=== PATIENT | female | born 1965 | race American Indian/Alaskan Native ===

== ENCOUNTER 2019-06-03 18:46 | Emergency (ER) | payer MEDICAID ==
[2019-06-03 19:35] VITALS: BP 146/86
--- NOTE | 2019-06-03 19:37 | Event Note ---
ED Screening Note Date of service: 06/03/19 Time: 19:32 ED Screening Note: This is a 53 y.o. F. 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 + nausea and dizziness Patient states she fell in her kitchen landing on left side and hitting her head. PMH of CVA This initial assessment/diagnostic orders/clinical plan/treatment(s) is/are subject to change based on patients health status, clinical progression and re-assessment by fellow clinical providers in the ED. Further treatment and workup at subsequent clinical providers discretion. Patient/guardian urged not to elope from the ED as their condition may be serious if not clinically assessed and managed. Initial orders include: XR left shoulder, neck, and CT of head
== END 2019-06-03 19:45 | disposition left against medical advice (07) ==
LOC: ED 18:46
DX: R51 Headache (principal); Z53.21 Procedure and treatment not carried out due to patient leaving prior to being seen by health care provider